=== PATIENT | male | born 1975 | race African-American/Black ===

== ENCOUNTER 2017-03-20 23:02 | Emergency (ER) | payer SELFPAY ==
[~2017-03-20] VITALS: Ht 188 cm; Wt 79.4 kg
[2017-03-20 23:26] LABS: BILIRUBIN,URINE NEGATIVE (NEG); GLUCOSE,URINE NEGATIVE (NEG); NITRITE,URINE NEGATIVE (NEG); PH,URINE 7.5; PROTEIN,URINE NEGATIVE (NEG-TRACE); UROBILINOGEN,URINE 0.2 mg/dL (0.2 mg/dL)
[2017-03-20 23:35] LABS: BACTERIA,URINE FEW /HPF (0-FEW); RBC,URINE 0 /HPF (0-2); SQUAMOUS EPITHELIAL CELL,UR FEW /LPF; WBC,URINE >40 /HPF (0-4)
--- NOTE | 2017-03-20 23:39 | PHYS DOC ---
Past Medical History Past Medical History: No Pertinent History Past Surgical History: No Surgical History Alcohol Use: Occasionally Drug Use: Cocaine, Marijuana Adult General Chief Complaint Chief Complaint: SEXUALLY TRANSMITTED DISEASE HPI HPI Patient is a 42 year old male who presents with penile discharge. Patient reports dysuria, hesitancy, urgency, and brown discharge, with onset today. Denies fevers or chills, abdominal pain, flank pain, vomiting. Sexually active with 1 partner without use of protection. No previous sexually transmitted infection. Previously healthy. Review of Systems Review of Systems Constitutional: Denies fever HENT: Denies nasal congestion or sore throat Respiratory: Denies cough or shortness of breath Cardiovascular: Denies chest pain GI: Denies abdominal pain, nausea, vomiting : see HPI Musculoskeletal: Denies back pain Integument: Denies rash or skin lesions Neurologic: Denies headache Current Medications Current Medications Current Medications Medications (Trade) Dose Ordered Sig/[place] Start Time Stop Time Status Last Admin Dose Admin Azithromycin (Zithromax) 1,000 mg 1X ONCE 03/20/17 23:55 03/20/17 23:56 DC 03/21/17 00:06 1,000 MG Ceftriaxone Sodium (Rocephin Im) 250 mg 1X ONCE 03/20/17 23:55 03/20/17 23:56 DC 03/21/17 00:06 250 MG Allergies Allergies Allergies Coded Allergies Type Severity Reaction Last Updated Verified No Known Drug Allergies 03/20/17 No Physical Exam Physical Exam Constitutional: Well developed, well nourished, no acute distress, non-toxic appearance. HENT: Normocephalic, atraumatic, bilateral external ears normal, oropharynx moist, nose normal. Eyes: conjunctiva normal, no discharge. Cardiovascular: no edema. Lungs & Thorax: no respiratory distress. Abdomen: soft, nontender, nondistended. : normal appearing male external genitalia with uncircumcised penis, no discharge seen, no skin lesions, no testicular tenderness or masses. Skin: Warm, dry, no erythema, no rash. Back: No CVA tenderness. Extremities: No deformity Neurologic: Alert and oriented X 3 Current Patient Data Vital Signs Vital Signs Date Time Temp Pulse Resp B/P (MAP) Pulse Ox O2 Delivery O2 Flow Rate FiO2 03/21/17 00:30 80 18 135/85 (102) 99 Room Air 03/20/17 23:14 98.2 98.2 Lab Values Laboratory Tests Test 03/20/17 23:19 Urine Collection Type Unknown Urine Color Yellow Urine Clarity Cloudy Urine pH 7.5 Urine Specific [place] 1.020 Urine Protein Negative mg/dL (NEG-TRACE) Urine Glucose (UA) Negative mg/dL (NEG) Urine Ketones (Stick) Negative mg/dL (NEG) Urine Blood Negative (NEG) Urine Nitrite Negative (NEG) Urine Bilirubin Negative (NEG) Urine Urobilinogen Dipstick 0.2 mg/dL (0.2 mg/dL) Urine Leukocyte Esterase Large (NEG) Urine RBC 0 /HPF (0-2) Urine WBC >40 /HPF (0-4) Urine Squamous Epithelial Cells Few /LPF Urine Bacteria Few /HPF (0-FEW) Urine Mucus Slight /LPF EKG EKG [] Radiology/Procedures Radiology/Procedures [] Course & Med Decision Making Course & Med Decision Making Pertinent Labs and Imaging studies reviewed. (See chart for details) Patient seen for urethritis. Empirically treated with azithromycin and Rocephin. UA and urine GC/Chlamydia sent to lab. Counseled regarding safe sex practices. Inform partners of symptoms and encouraged to seek treatment. No sex for one week. He sees condoms when having intercourse. Follow-up as needed with primary care physician. Return to the emergency department for high fever, severe pain, uncontrolled vomiting, any otherwise worsening condition. Discharged home in stable condition. [] Dragon Disclaimer Dragon Disclaimer This electronic medical record was generated, in whole or in part, using a voice recognition dictation system. Departure Departure Impression: Primary Impression: Urethritis Disposition: 01 HOME, SELF-CARE Condition: STABLE Referrals: GREG ARRIAZA MD Patient Instructions: Urethritis, Adult Additional Instructions: You were seen in the emergency department today for likely sexually transmitted infection. You were treated with antibiotics here for gonorrhea and chlamydia. Use condoms when having intercourse. No sex for one week. Any sexual partner should be treated. Follow-up with primary care as needed. Return to the emergency department for severe abdominal pain, uncontrolled vomiting, any otherwise worsening condition. RENETTA ALLAN MD Mar 20, 2017 23:39
[2017-03-20] MEDS ORDERED: AZITHROMYCIN 250 MG TABLET. PO ONE (23:55)
[2017-03-20] MEDS ORDERED: cefTRIAXone IM 250 MG VIAL IM ONE (23:55)
[2017-03-21 00:30] VITALS: BP 135/85
== END 2017-03-21 00:32 | disposition home or self-care (01) ==
LOC: ER 23:02
DX: N34.2 Other urethritis (principal); F14.10 Cocaine abuse, uncomplicated; F12.10 Cannabis abuse, uncomplicated
CPT/HCPCS: 81001; 87086; 87491; 87591; 96372; 99284; J0696; Q0144